=== PATIENT | male | born 1965 | race Caucasian/White ===

== ENCOUNTER 2017-04-08 18:05 | Emergency (ER) | payer MEDICARE ==
--- NOTE | ~2017-04-08 | ER ---
PATIENT'S NAME: NISHANT FONTANA [facility] AGE: 51 Y [address] ROOM: [place] [address] LOCATION: [facility] ADMIT DATE: 04/08/2017 ER/Outpatient Report DISCHARGE DATE: 04/08/2017 FAMILY PHYSICIAN: PHYSICIAN, NO ATTENDING PHYSICIAN: Kenya Dempsey A HISTORY OF PRESENT ILLNESS: A 51-year-old male who presents today with right leg pain. The patient says that about a few months ago, he walked into a ditch and he felt a pull there, he sort of ignored it, never sought treatment for it, and then today he sort of did the same thing, stepped into a hole, and felt like a ripping sensation in the back of his knee and now has pain down the front of his right-side like his right calf and radiating down the right cruz. He said it feels like cruz splints really and it happened an hour ago after this ripping sensation occurred he felt. He reports the pain is a 10/10. He denies any leg numbness or tingling. He says he can flex the ankle without any difficulty, he has no problems with his knee, he does not think that it is knee, but he has severe pain of the right cruz and also on the right lateral calf. The patient has no other complaints at this time. He did not take anything for pain though. PAST MEDICAL HISTORY: Includes chronic kidney disease, the patient has end-stage renal disease, on dialysis, and hypercholesterolemia. PAST SURGICAL HISTORY: Left arm fistula and parathyroidectomy. SOCIAL HISTORY: He does not smoke, drink, or use any drugs. MEDICATIONS: Please see med list. ALLERGIES: NONE. REVIEW OF SYSTEMS: Reviewed by me and negative with the exception of those discussed in HPI. PHYSICAL EXAMINATION: VITAL SIGNS: The patient is 6 feet, 2 inches, he weighs 128.6 kilos, blood pressure 144/86, heart rate 100, respiratory rate 20, temperature is 100.2, tympanic, and satting 95% on room air. GENERAL: The patient is very pleasant, he is speaking in full sentences, he came in by wheelchair, he is unable to bear any weight on that leg. PATIENT'S NAME: NISHANT FONTANA [facility] AGE: 51 Y [address] ROOM: [place], [place] [address] LOCATION: ED ADMIT DATE: 04/08/2017 ER/Outpatient Report DISCHARGE DATE: 04/08/2017 FAMILY PHYSICIAN: PHYSICIAN, NO ATTENDING PHYSICIAN: Kenya Dempsey EXTREMITIES: The patient has no tenderness of the knee at all. No patellar tenderness. No medial or lateral tenderness. He is unable to fully extend at the knee, secondary to pain, the patient thinks, and he also feels like he says he feels like slightly weak doing that as well. He is very tight at the gastrocs, I do not feel any groove or I do not feel a tear at all. He does not have any calf tenderness, it is not swollen, he does not have any tenderness when I push on it. His right calf is not greater than the left. Otherwise, appears normal, there is no ecchymoses or anything. He has no Achilles tendon tenderness either. He is wiggling his toes. He can move his ankle and dorsiflex and plantarflex without any difficulty. Intact sensation of the lower extremities. EMERGENCY ROOM COURSE: An x-rays were done of his knee and his tib-fib, on my read, they seem fine, I do not see any fracture or dislocation. Discussed with the patient, I think this is more of a strain or could be a muscle tear as well, but x-rays are fine, he should follow with his primary care doctor. He says he has his own knee brace and crutches at home and we will have him follow up with an orthopedist for further evaluation. He understands reasons to come back to the ER sooner. He was given a script for Percocet for pain. MD DANIELLE PENNINGTON/linda /[id number] d: 04/09/172 t: 04/10/17 1843, OUTPATIENT REPORT
== END 2017-04-08 19:01 | disposition disaster alternative care site (69) ==
LOC: GMED 18:05
DX: M79.604 Pain in right leg (principal); N18.6 End stage renal disease; E78.00 Pure hypercholesterolemia, unspecified; Z99.2 Dependence on renal dialysis; Z98.890 Other specified postprocedural states; Z79.899 Other long term (current) drug therapy